=== PATIENT | female | born 1980 | race Caucasian/White ===

== ENCOUNTER 2019-10-03 11:57 | Outpatient (CLI) | payer OTHER, SELFPAY ==
--- NOTE | ~2019-10-03 | XR_ITS ---
XR sacrum coccyx min 2V DATE: 10/03/2019 12:32 INDICATION: Low back pain, right hip pain TECHNIQUE: AP, angled AP and lateral views COMPARISON: None FINDINGS: The sacroiliac joints are intact. No fracture, diastases or ankylosis. IMPRESSION: No significant abnormality Reviewed, dictated and finalized at location B. IMPRESSION: No significant abnormality
--- NOTE | ~2019-10-03 | XR_ITS ---
EXAMINATION: XR hip RT min 2V DATE: 10/03/2019 12:32 INDICATION: Right hip pain. TECHNIQUE: 3 views of right hip were obtained. COMPARISON: Right hip radiographs 02/24/2016 FINDINGS: Bone alignment is normal. No fracture. Right hip joint space is normal. IMPRESSION: 1. Normal right hip. Reviewed, dictated and finalized at location A. IMPRESSION: 1. Normal right hip.
--- NOTE | ~2019-10-03 | XR_ITS ---
XR lumbar spine 2-3V DATE: 10/03/2019 12:32 INDICATION: Low back pain, right hip pain TECHNIQUE: AP, lateral, coned lateral lumbosacral views COMPARISON: None FINDINGS: There is mild dextro scoliosis of the lumbar spine. No fracture or bone destruction or spondylolisthesis is evident. There is minimal degenerative spurri ng of lumbar spine, mild loss of height at L1-2 and L4-5 interspaces. The lumbar pedicles are intact. The sacroiliac joints appear normal. IMPRESSION: Mild scoliosis and mild degenerative change Reviewed, dictated and finalized at location B.
== END 2019-10-03 11:58 | disposition home or self-care (01) ==
LOC: ANHIMG 12:01
PROVIDERS: PCP Family Medicine; Visit Provider Family Medicine
DX: M25.551 Pain in right hip (principal); M54.5 Low back pain; M41.9 Scoliosis, unspecified
CPT/HCPCS: 72100; 72220; 73502